=== PATIENT | female | born 1950 | race Caucasian/White ===

== ENCOUNTER 2022-09-07 16:58 | Emergency (ER) | payer MEDICARE, BC ==
[~2022-09-07] VITALS: Ht 177.8 cm; Wt 86.2 kg
[2022-09-07] MEDS ORDERED: IV NS 0.9% 1,000 ML BAG IV ONE (17:30)
[2022-09-07] MEDS ORDERED: ACETAMINOPHEN 325 MG TABLET PO ONE (17:30)
--- NOTE | 2022-09-07 17:35 | NUR ---
BIBS "Dx with COVID today- Feel miserable-congestion/stuffy/fever/cough/bodyache. AMBULATORY, PLACED ON BED, BREATHING UNLABORED SATURATING AT 97%RA.
[2022-09-07] MEDS ORDERED: ACETAMINOPHEN ES 500 MG TABLET ONE (17:38)
--- NOTE | 2022-09-07 17:55 | NUR ---
BLOOD DRAWN AND SENT TO LAB
[2022-09-07] MEDS ORDERED: BENZONATATE 100 MG CAPSULE PO PRN (18:00)
[2022-09-07] MEDS ORDERED: IPRATROPIUM NEB FS 0.5 MG/2.5 ML AMPUL.NEB NEB ONE (18:00)
[2022-09-07] MEDS ORDERED: ALBUTEROL FS 2.5 MG/3 ML VIAL.NEB CONTNEB ONE (18:00)
[2022-09-07] MEDS ORDERED: predniSONE 20 MG TABLET PO ONE (18:00)
[2022-09-07 18:12] LABS: BASOPHILS % (AUTO) 0.4 % (0.0-2.0); EOSINOPHILS % (AUTO) 0.3 % (0.0-6.0); HEMATOCRIT 43 % (33-45); HEMOGLOBIN 14.4 g/dL (11.5-14.8); LYMPHOCYTES # (AUTO) 0.5 K/uL (0.8-4.8); LYMPHOCYTES % (AUTO) 4.6 % (20.0-44.0); MEAN CORPUSCULAR HGB CONC 34 g/dl (31.0-36.0); MEAN CORPUSCULAR VOLUME 98 fL (82-100); MONOCYTES # (AUTO) 0.8 K/uL (0.1-1.30); NEUTROPHILS # (AUTO) 8.5 K/uL (1.8-8.9); NEUTROPHILS % (AUTO) 86.7 % (43.0-81.0); PLATELET COUNT (AUTO) 184 K/uL (150-450); RED BLOOD CELL COUNT(AUTO) 4.38 MIL/uL (4.0-5.2); WHITE BLOOD COUNT (AUTO) 9.8 K/uL (4.3-11.0)
--- NOTE | 2022-09-07 18:13 | NUR ---
ADDIE MORTON FRIEND [phone] CAN PICK PT UP LATER
[2022-09-07 18:18] LABS: CALCIUM, SERUM 8.7 mg/dL (8.5-10.1); CARBON DIOXIDE 23 mmol/L (21-32); CHLORIDE 105 mmol/L (98-107); CREATININE 0.8 mg/dL (0.6-1.3); GLUCOSE 102 mg/dL (74-106); POTASSIUM 3.4 mmol/L (3.5-5.1); SODIUM SERUM 137 mmol/L (136-145); UREA NITROGEN, BLOOD 12 mg/dL (7-18)
[2022-09-07] MEDS ORDERED: predniSONE 20 MG TABLET ONE (18:19)
[2022-09-07] MEDS ORDERED: ALBUTEROL FS 2.5 MG/3 ML VIAL.NEB ONE (18:20)
[2022-09-07] MEDS ORDERED: IPRATROPIUM NEB FS 0.5 MG/2.5 ML AMPUL.NEB ONE (18:20)
[2022-09-07 18:30] LABS: ALANINE AMINOTRANSFERASE 33 U/L (12-78); ALBUMIN 3.9 g/dL (3.4-5.0); ALKALINE PHOSPHATASE 65 U/L (46-116); ASPARTATE AMINOTRANSFERASE 25 U/L (15-37); BILIRUBIN,DIRECT 0.3 mg/dL (0.0-0.2); BILIRUBIN,TOTAL 1.1 mg/dL (0.2-1.0); TOTAL PROTEIN, SERUM 7.2 g/dL (6.4-8.2)
[2022-09-07] MEDS ORDERED: POTASSIUM CHLORIDE 20 MEQ TAB.PRT.SR PO ONE ×2 (19:00→19:36)
[2022-09-07] MEDS ORDERED: CETI1TAB9 PO (19:41)
--- NOTE | 2022-09-07 19:50 | NUR ---
IV removed. Catheter intact and site benign. Pressure and 4x4 applied to site. No bleeding noted.Patient discharged to home in stable condition. Written and verbal after care instructions given. Patient verbalizes understanding of instruction.
[2022-09-07 20:01] VITALS: BP 125/80
[2022-09-07 20:48] LABS: BAND % (MANUAL) 1 % (0.0-5.0); LYMPHOCYTES % (MANUAL) 4 % (16-48); MONOCYTES % (MANUAL) 8 % (0-11.0); NEUTROPHILS % (MANUAL) 87 (42-76)
== END 2022-09-07 19:50 | disposition home or self-care (01) ==
LOC: ER 17:05
DX: U07.1 COVID-19 (principal); I10 Essential (primary) hypertension; R53.1 Weakness; Z98.890 Other specified postprocedural states; Z85.3 Personal history of malignant neoplasm of breast
CPT/HCPCS: 99285; 96360; 71045; 93005 ×2; 85025; 80048; 87040 ×2; 83605; 80076; 36415; 84484; 83880; 85007; 94640 ×2; J7512